=== PATIENT | female | born 1955 | race Caucasian/White ===

== ENCOUNTER 2021-05-28 16:32 | Emergency (ER) | payer MEDICARE, OTHER ==
[~2021-05-28] VITALS: Ht 165.1 cm; Wt 77.1 kg
== END 2021-05-28 19:29 | disposition home or self-care (01) ==
LOC: ER1 16:32 → EROP 16:32 → EDSTATUS 16:54 → ER1 19:29
DX: U07.1 COVID-19 (principal); Z23 Encounter for immunization; I10 Essential (primary) hypertension
CPT/HCPCS: 99283; M0243

== ENCOUNTER 2021-10-31 20:30 | Emergency (ER) | payer MEDICARE, OTHER ==
[2021-10-31 21:25] LABS: HEMOGLOBIN 13.8 gm/dl (12.3-15.3); RED BLOOD COUNT 4.37 M/UL (4.00-5.10); WHITE BLOOD COUNT 10.7 K/UL (4.5-11.0)
[2021-10-31 21:44] LABS: BUN/CREATININE RATIO 28 (0-10)
== END 2021-10-31 23:05 | disposition home or self-care (01) ==
LOC: ER1 20:30
PROVIDERS: Physician Assistant Medical
DX: R07.9 Chest pain, unspecified (principal); K21.9 Gastro-esophageal reflux disease without esophagitis; I10 Essential (primary) hypertension; F17.210 Nicotine dependence, cigarettes, uncomplicated
CPT/HCPCS: 71045; 80053; 82550; 82553; 84484; 85025; 93005; 99285